=== PATIENT | male | born 1940 | race Caucasian/White ===

== ENCOUNTER 2017-04-20 08:11 | Day surgery (SDC) | payer MEDICARE, BC ==
--- NOTE | ~2017-04-20 | EGD ---
EGD REPORT [facility] [address] [place] [address] NAME: ALVIN HERNANDEZ : [birth year] STATUS : REG [facility]#: [id number] AGE: 77 ADM/REG DATE : 04/20/17 MR#: [id number] REPORT SERV DATE: 04/20/17 DICTATED BY: BENI BECERRA DATE: 04/20/17 REPORT STATUS : Draft TRANSCRIBED BY: [employer] DATE: 04/20/17 [facility] Center Patient Name: Alvin Hernandez Date of : 1940 Attending MD: BENI BECERRA MD Procedure Date No Time: 04/20/2017 Procedure: Upper GI endoscopy Indications: Epigastric abdominal pain, Anemia, Heme positive stool, Melena Referring MD: BORIS MARTINEZ Medicines: Propofol per Anesthesia Complications: No immediate complications. Procedure: Pre-Anesthesia Assessment: - ASA Grade Assessment: III - A patient with severe systemic disease. After obtaining informed consent, the endoscope was passed under direct vision. Throughout the procedure, the patient's blood pressure, pulse, and oxygen saturations were monitored continuously. The GIF [id number] was introduced through the mouth, and advanced to the third part of duodenum. The upper GI endoscopy was accomplished without difficulty. The patient tolerated the procedure well. Findings: Non-severe esophagitis with no bleeding was found in the entire esophagus. A small hiatus hernia was present. as seen on retroflexion Diffuse mild inflammation characterized by congestion (edema) and erythema was found in the entire examined stomach. Biopsies were taken with a cold forceps for Helicobacter pylori testing. Localized mild inflammation characterized by congestion (edema) and erythema was found in the duodenal bulb. A single small angioectasia without bleeding was found in the second part of the duodenum. Vaporization for tissue destruction using argon plasma at 0.5 liters/minute and 20 rodriguez was successful. The 2nd part of the duodenum and 3rd part of the duodenum were normal. Impression: - Non-severe reflux esophagitis. - Hiatus hernia. - Gastritis. Biopsied. - Duodenitis. - A single non-bleeding angioectasia in the duodenum. Treated with thermal therapy. - Normal 2nd part of the duodenum and 3rd part of the EGD REPORT [address] [place]. [address] NAME: ALVIN HERNANDEZ : [birth year] [place]US [place] [facility] [place] [id number] AGE: 77 ADM/REG DATE : 04/20/17 MR#: [id number] REPORT SERV DATE: 04/20/17 DICTATED BY: BENI BECERRA DATE: 04/20/17 REPORT STATUS : Draft TRANSCRIBED BY: [employer] DATE: 04/20/17 duodenum. Recommendation: - Patient has a contact number available for emergencies. The signs and symptoms of potential delayed complications were discussed with the patient. Return to normal activities tomorrow. Written discharge instructions were provided to the patient. - Return to previous diet. - Continue present medications. - Return to my office as previously scheduled. - Discharge patient to home. Procedure Code(s): --- Professional --- 99447, Esophagogastroduodenoscopy, flexible, transoral; with ablation of tumor(s), polyp(s), or other lesion(s) (includes pre- and post-dilation and guide wire passage, when performed) 37194, Esophagogastroduodenoscopy, flexible, transoral; with biopsy, single or multiple Diagnosis Code(s): --- Professional --- K21.0, Gastro-esophageal reflux disease with esophagitis K44.9, Diaphragmatic hernia without obstruction or gangrene K29.70, Gastritis, unspecified, without bleeding K29.80, Duodenitis without bleeding K31.819, Angiodysplasia of stomach and duodenum without bleeding R10.13, Epigastric pain D64.9, Anemia, unspecified R19.5, Other fecal abnormalities K92.1, Melena CPT copyright 2013 [employer]. All rights reserved. The codes documented in this report are preliminary and upon overnight associate review may be revised to meet current compliance requirements. Beni Becerra MD BENI BECERRA MD 04/20/2017 11:55 AM This report has been signed electronically. Number of Addenda: 0 Note Initiated On: 04/20/2017 10:19 AM EGD REPORT [address] [place]. [address] NAME: ALVIN HERNANDEZ : [birth year] [place]US : [place] [facility] [place]#: [id number] AGE: 77 ADM/REG DATE : 04/20/17 MR#: [id number] REPORT SERV DATE: 04/20/17 DICTATED BY: BENI BECERRA DATE: 04/20/17 REPORT STATUS : Draft TRANSCRIBED BY: [employer] DATE: 04/20/17 Scope Withdrawal Time 0 hours 0 minutes 0 seconds
--- NOTE | ~2017-04-20 | EGD ---
EGD REPORT [facility] [address] [place] [address] NAME: ALVIN HERNANDEZ : [birth year] [place] [facility] [place]#: [id number] AGE: 77 ADM/REG DATE : 04/20/17 MR#: [id number] REPORT SERV DATE: 04/20/17 DICTATED BY: BENI BECERRA DATE: 04/20/17 REPORT STATUS : Draft TRANSCRIBED BY: [employer] DATE: 04/20/17 Endoscopy Center Patient Name: Alvin Hernandez Date of : 1940 Attending MD: BENI BECERRA MD Procedure Date No Time: 04/20/2017 Procedure: Colonoscopy Indications: Heme positive stool, Melena, Iron deficiency anemia Referring MD: BORIS MARTINEZ Medicines: Propofol per Anesthesia Complications: No immediate complications. Procedure: Pre-Anesthesia Assessment: - ASA Grade Assessment: III - A patient with severe systemic disease. After I obtained informed consent, the scope was passed under direct vision. Throughout the procedure, the patient's blood pressure, pulse, and oxygen saturations were monitored continuously. The CF [id number] was introduced through the anus and advanced to the terminal ileum. The colonoscopy was performed without difficulty. The patient tolerated the procedure well. The quality of the bowel preparation was good. Findings: The perianal and digital rectal examinations were normal. The terminal ileum appeared normal. The colon (entire examined portion) appeared normal. Two medium-sized localized angioectasias with bleeding were found in the cecum. Vaporization for tissue destruction using argon plasma at 0.5 liters/minute and 15 rodriguez was successful. Multiple small and large-mouthed diverticula were found in the recto-sigmoid colon, in the sigmoid colon and in the descending colon. Two sessile polyps were found in the rectum. The polyps were 1 to 2 mm in size. These polyps were removed with a cold biopsy forceps. Resection and retrieval were complete. Four sessile polyps were found in the rectum. The polyps were 3 to 5 mm in size. These polyps were removed with a cold snare. Resection and retrieval were complete. A sessile polyp was found in the rectum. The polyp was 8 mm in size. The polyp was removed with a hot snare. Resection and retrieval were complete. Non-bleeding internal hemorrhoids were found during retroflexion and were severe, large and Grade I (internal hemorrhoids that do not prolapse). EGD REPORT [address] [address] NAME: ALVIN HERNANDEZ : [birth year] STATUS : [place] [facility] [place]#: [id number] AGE: 77 ADM/REG DATE : 04/20/17 MR#: [id number] REPORT SERV DATE: 04/20/17 DICTATED BY: BENI BECERRA DATE: 04/20/17 REPORT STATUS : Draft TRANSCRIBED BY: [employer] DATE: 04/20/17 Impression: - The examined portion of the ileum was normal. - The entire examined colon is normal. - Two bleeding colonic angioectasias. Treated with thermal therapy. - Diverticulosis in the recto-sigmoid colon, in the sigmoid colon and in the descending colon. - Two 1 to 2 mm polyps in the rectum. Resected and retrieved. - Four 3 to 5 mm polyps in the rectum. Resected and retrieved. - One 8 mm polyp in the rectum. Resected and retrieved. - Non-bleeding internal hemorrhoids. Recommendation: - Patient has a contact number available for emergencies. The signs and symptoms of potential delayed complications were discussed with the patient. Return to normal activities tomorrow. Written discharge instructions were provided to the patient. - Return to previous diet. - Continue present medications. - Await pathology results. - Repeat colonoscopy in 3 - 5 years for surveillance based on pathology results. - Return to my office as previously scheduled. - Discharge patient to home. Procedure Code(s): --- Professional --- 61951, Colonoscopy, flexible, proximal to splenic flexure; with ablation of tumor(s), polyp(s), or other lesion(s) not amenable to removal by hot biopsy forceps, bipolar cautery or snare technique 83969, 59, Colonoscopy, flexible, proximal to splenic flexure; with removal of tumor(s), polyp(s), or other lesion(s) by snare technique 95208, 59, Colonoscopy, flexible, proximal to splenic flexure; with biopsy, single or multiple Diagnosis Code(s): --- Professional --- K64.0, First degree hemorrhoids K57.30, Diverticulosis of large intestine without perforation or abscess without bleeding K55.21, Angiodysplasia of colon with hemorrhage K62.1, Rectal polyp R19.5, Other fecal abnormalities K92.1, Melena D50.9, Iron deficiency anemia, unspecified EGD REPORT [facility] [address] [place]. [address] NAME: ALVIN HERNANDEZ : [birth year] [place]US : [place] [facility] [place]#: [id number] AGE: 77 ADM/REG DATE : 04/20/17 MR#: [id number] REPORT SERV DATE: 04/20/17 DICTATED BY: BENI BECERRA DATE: 04/20/17 REPORT STATUS : Draft TRANSCRIBED BY: [employer] DATE: 04/20/17 CPT copyright 2013 [employer]. All rights reserved. The codes documented in this report are preliminary and upon crime lab technician review may be revised to meet current compliance requirements. Beni Becerra MD BENI BECERRA MD 04/20/2017 11:57 AM This report has been signed electronically. Number of Addenda: 0 Note Initiated On: 04/20/2017 10:20 AM Scope Withdrawal Time 0 hours 35 minutes 21 seconds [address] [place] [address]
[~2017-04-20 08:11] MED LIST: ASAB PO; CELEXA20 PO; COREG6 PO; IMDUR30 PO; LIPITOR40 PO; PERCOCET 10/3251 TAB PO; PRIN2.5 PO; PROTONIX PO; SUCR PO
== END 2017-04-20 23:59 | disposition home health service (06) ==
LOC: DMU 08:11
PROVIDERS: Internal Medicine Gastroenterology
PROC: 0DBP8ZX Excision of Rectum, Via Natural or Artificial Opening Endoscopic, Diagnostic (ICD-10-PCS; principal; 2017-04-20 09:30)
PROC: 0DBP8ZZ Excision of Rectum, Via Natural or Artificial Opening Endoscopic (ICD-10-PCS; 2017-04-20 09:30)
PROC: 0DBP8ZX Excision of Rectum, Via Natural or Artificial Opening Endoscopic, Diagnostic (ICD-10-PCS; 2017-04-20 09:30)
PROC: 0DB68ZX Excision of Stomach, Via Natural or Artificial Opening Endoscopic, Diagnostic (ICD-10-PCS; 2017-04-20 09:30)
DX: C20 Malignant neoplasm of rectum (principal); K29.50 Unspecified chronic gastritis without bleeding; K64.0 First degree hemorrhoids; K57.30 Diverticulosis of large intestine without perforation or abscess without bleeding; K31.819 Angiodysplasia of stomach and duodenum without bleeding; K21.0 Gastro-esophageal reflux disease with esophagitis; K44.9 Diaphragmatic hernia without obstruction or gangrene; K55.21 Angiodysplasia of colon with hemorrhage; I10 Essential (primary) hypertension; E78.00 Pure hypercholesterolemia, unspecified; I25.10 Atherosclerotic heart disease of native coronary artery without angina pectoris; I25.2 Old myocardial infarction; Z95.1 Presence of aortocoronary bypass graft; Z87.891 Personal history of nicotine dependence
CPT/HCPCS: 88305; 88342